=== PATIENT | male | born 2005 | race Caucasian/White ===

== ENCOUNTER 2024-05-14 17:00 | Emergency (ER) | payer OTHER ==
[~2024-05-14] VITALS: Ht 170.2 cm; Wt 78.6 kg
[2024-05-14 17:24] VITALS: BP 138/87; PULSE 72; RESP 16; TEMP 98.3; O2SAT 98
== END 2024-05-14 18:38 | disposition left against medical advice (07) ==
LOC: EMS 17:00
DX: M54.6 Pain in thoracic spine (principal); Z53.21 Procedure and treatment not carried out due to patient leaving prior to being seen by health care provider